=== PATIENT | female | born 1945 | race Caucasian/White ===

== ENCOUNTER 2016-09-03 07:42 | Emergency (ER) | payer OTHER ==
--- NOTE | 2016-09-03 07:58 | PDOC ---
History of Present Illness - General Chief Complaint: Palpitations Stated Complaint: PALITATIONS Time Seen by Provider: 09/03/16 07:58 History Source: Patient, EMS, Family Exam Limitations: No Limitations - History of Present Illness Initial Comments: 09/03/16 08:03 The patient is a 71-year-old female with a significant past medical history of hypertension, hyperlipidemia, type two diabetes, coronary artery disease, paroxysmal atrial fibrillation (Eliquis), hypothyroidism, asthma, who presents to the emergency department after she developed the acute onset of palpitations approximately one hour ago. They were rapid and fast. She took a nitroglycerin, and they resolved after a few minutes. She denies any accompanying chest pain, diaphoresis, dyspnea, nausea. She states that she had "stressful night, as she was at the hospital with her daughter, who has psychiatric illness. She did not take her medications this morning. The patient denies recent travel/surgeries/immobility, lower extremity edema, calf pain or tenderness, tobacco use, hormone use, personal or family history of thrombosis. Past History - Past Medical History Allergies/Adverse Reactions: Allergies Allergy/AdvReac Type Severity Reaction Status Date / Time No Known Allergies Allergy Verified 09/03/16 07:57 Home Medications: Ambulatory Orders Apixaban [Eliquis] 5 mg PO DAILY 09/03/16 Isosorbide Mononitrate [Isosorbide Mononitrate ER] 30 mg PO DAILY 09/03/16 Levothyroxine [Synthroid -] 50 mcg PO DAILY 09/03/16 Losartan Potassium 50 mg PO DAILY 09/03/16 Metoprolol Succinate [Toprol Xl -] 50 mg PO BID 09/03/16 Montelukast Na [Singulair -] 10 mg PO HS 09/03/16 Nitroglycerin [Nitrostat] 0.4 mg SL PRN PRN 09/03/16 Rosuvastatin Calcium 10 mg PO DAILY 09/03/16 Anemia: No Asthma: Yes Cancer: No Cardiac Disorders: No (WAS HOSPITALIZED FOR CHEST PAIN-NO [place]-SAW CARDIOLOGY- MEDICATION ADJUSTED.) CVA: No COPD: No CHF: No Dementia: No Diabetes: Yes GI Disorders: Yes Disorders: No HTN: Yes Hypercholesterolemia: Yes Liver Disease: No Suicide Attempt (Hx): No Seizures: No Thyroid Disease: Yes - Surgical History Abdominal Surgery: Yes (ABDOMINOPLASTY @ 59) Appendectomy: No Cardiac Surgery: No Cholecystectomy: Yes Lung Surgery: No Neurologic Surgery: No Orthopedic Surgery: No - Psycho/Social/Smoking Cessation Hx Anxiety: No Suicidal Ideation: No Smoking History: Former smoker Have you smoked in the past 12 months: No If you are a former smoker, when did you quit?: STOPPED @ 37 YRS OF AGE Hx Alcohol Use: Yes (occasional) Drug/Substance Use Hx: No Substance Use Type: Alcohol Hx Substance Use Treatment: No Review of Systems - Review of Systems Comments:: 09/03/16 08:04 CONSTITUTIONAL: Absent: fever, chills, diaphoresis, generalized weakness, malaise, loss of appetite HEENT: Absent: rhinorrhea, nasal congestion, throat pain, throat swelling, difficulty swallowing, mouth swelling, ear pain, eye pain, visual Changes CARDIOVASCULAR: Present: palpitations Absent: chest pain, loss of consciousness, peripheral edema RESPIRATORY: Absent: cough, shortness of breath, dyspnea with exertion, orthopnea, wheezing, stridor, hemoptysis GASTROINTESTINAL: Absent: abdominal pain, abdominal distension, nausea, vomiting, diarrhea, constipation, melena, hematochezia GENITOURINARY: Absent: dysuria, frequency, urgency, hesitancy, hematuria, flank pain, genital pain MUSCULOSKELETAL: Absent: myalgia, arthralgia, joint swelling SKIN: Absent: rash, itching, pallor HEMATOLOGIC/IMMUNOLOGIC: Absent: easy bleeding, easy bruising, lymphadenopathy, frequent infections ENDOCRINE: Absent: unexplained weight gain, unexplained weight loss, heat intolerance, cold intolerance NEUROLOGIC: Absent: headache, focal weakness or paresthesias, dizziness, unsteady gait, seizure, mental status changes, bladder or bowel incontinence PSYCHIATRIC: Absent: anxiety, depression, suicidal or homicidal ideation, hallucinations. *Physical Exam - Physical Exam Comments: 09/03/16 08:04 GENERAL: Well developed, well nourished. Awake and alert. No acute distress. HEENT: Normocephalic, atraumatic. PERRLA, EOMI. No conjunctival pallor. Sclera are non- icteric. Moist mucous membranes. Oropharynx is clear. NECK: Supple. Full ROM. No JVD. Carotid pulses 2+ and symmetric, without bruits. No thyromegaly. No lymphadenopathy. CARDIOVASCULAR: Regular rate and rhythm. No murmurs, rubs, or gallops. Distal pulses are 2+ and symmetric. PULMONARY: No evidence of respiratory distress. Lungs clear to auscultation bilaterally. No wheezing, rales or rhonchi. ABDOMINAL: Soft. Non-tender. Non-distended. No rebound or guarding. No organomegaly. Normoactive bowel sounds. MUSCULOSKELETAL Normal range of motion at all joints. No bony deformities or tenderness. No CVA tenderness. EXTREMITIES: No cyanosis. No clubbing. No edema. No calf tenderness. SKIN: Warm and dry. Normal capillary refill. No rashes. No jaundice. NEUROLOGICAL: Alert, awake, appropriate. Cranial nerves 2-12 intact. No deficits to light touch and temperature in face, upper extremities and lower extremities. No motor deficits in the in face, upper extremities and lower extremities. Normoreflexic in the upper and lower extremities. Normal speech. Toes are down- going bilaterally. Gait is normal without ataxia. PSYCHIATRIC: Cooperative. Good eye contact. Appropriate mood and affect. Heart Score/ECG Review - ECG Impressions Comment:: 09/03/16 08:14 Normal sinus rhythm with a ventricular rate of 72, normal axis, normal intervals , early R-wave progression, no ST changes ED Treatment Course - LABORATORY CBC & Chemistry Diagram: 09/03/16 08:35 09/03/16 08:35 Medical Decision Making - Medical Decision Making 09/03/16 08:06 The patient is well appearing and in no acute distress Will obtain EKG, labs, CXR 09/03/16 08:13 EKG noted, sinus rhythm with no ischemic changes 09/03/16 08:21 She remains in normal sinus rhythm, asymptomatic CXR emergency department interpretation: no acute cardiopulmonary disease 09/03/16 10:12 She has remained asymptomatic, and normal sinus rhythm, for the duration of her stay Troponin noted, negative Clinical impression: Palpitations I discussed the physical exam findings, ancillary test results and final diagnoses with the patient. I answered all of the patient's questions. The patient was satisfied with the care received and felt comfortable with the discharge plan and treatment plan. The patient will call their primary care physician within 24 hours to arrange follow-up and will return to the Emergency Department with any new, persistent or worsening symptoms. *DC/Admit/Observation/Transfer Diagnosis at time of Disposition: Palpitations - Discharge Dispostion Disposition: HOME Condition at time of disposition: Stable - Patient Instructions Printed Discharge Instructions: DI for Palpitations, DI for Arrhythmias, DI for Atrial Fibrillation Additional Instructions: Return to the emergency department immediately with ANY new, persistent or worsening symptoms. You MUST call and follow up with your doctor tomorrow. Please make sure your doctor reviews the results of your emergency department evaluation.
[2016-09-03] MEDS ORDERED: ASPIRIN 81 MG CHEWABLE TABLETS PO ONE (07:59)
[2016-09-03] MEDS ORDERED: METOPROLOL TARTRATE 50 MG TABLET (FP) PO ONE (08:15)
[2016-09-03 08:45] VITALS: TEMP 98.3; BMI 32.1
[2016-09-03 08:49] LABS: BASOPHIL 0.5 % (0-2.0); EOSINOPHIL 1.8 % (0-4.5); MCH 30.2 pg (25.7-33.7); MCHC 33.2 g/dl (32.0-36.0); MEAN PLT VOLUME 7.4 fl (7.5-11.1); NEUTROPHILS 66.4 % (42.8-82.8); PLATELET COUNT 286 K/MM3 (134-434); RDW 12.5 % (11.6-15.6); WHITE BLOOD COUNT 6.6 K/mm3 (4.0-10.8)
[2016-09-03] MEDS ORDERED: METOPROLOL TARTRATE 50 MG TABLET (FP) ONE (08:49)
[2016-09-03 09:09] LABS: CPK(DFH) 70 IU/L (26-140)
[2016-09-03 09:10] LABS: ALBUMIN 3.7 g/dl (3.5-5.0); ALK PHOS 74 U/L (32-92); ANION GAP 6 (8-16); BILIRUBIN,TOTAL 0.6 mg/dl (0.2-1.0); CALCIUM 8.8 mg/dl (8.4-10.2); CO2 25 mmol/L (22-28); CREATININE 0.7 mg/dl (0.6-1.3); GLUCOSE,RANDOM 112 mg/dl (74-106); MAGNESIUM 1.9 mg/dL (1.8-2.4); SGOT/AST 17 U/L (10-42); SGPT/ALT 14 U/L (10-40); TOT PROT 6.2 g/dl (6.4-8.3)
[2016-09-03 09:16] LABS: INR 1.12 (0.82-1.09); PROTHROMBIN TIME (PATIENT) 12.5 SEC (10.2-13.0)
[2016-09-03 10:05] LABS: TROPONIN I (DFP) < 0.03 ng/ml (0.03-0.50)
[2016-09-03 10:20] VITALS: BP 121/66; PULSE 56
[2016-09-03 11:28] LABS: THYROID STIMULATING HORMONE 3.27 uIU/ml (0.358-3.74)
--- NOTE | 2016-09-06 09:59 | EKG ---
Test Reason : Blood Pressure : / mmHG Vent. Rate : 072 BPM Atrial Rate : 072 BPM P-R Int : 196 ms QRS Dur : 080 ms QT Int : 402 ms P-R-T Axes : 024 -11 044 degrees QTc Int : 440 ms NORMAL SINUS RHYTHM CANNOT RULE OUT INFERIOR INFARCT , AGE UNDETERMINED NO PREVIOUS ECGS AVAILABLE Confirmed by MD BRYANT, SHELLIE ([id number]) on 09/06/2016 9:58:55 AM Referred By: FABIOLA WELCH Confirmed By:SHELLIE HURTADO MD
== END 2016-09-03 10:25 | disposition home or self-care (01) ==
LOC: FER 07:42
DX: R00.2 Palpitations (principal); J45.909 Unspecified asthma, uncomplicated; E11.9 Type 2 diabetes mellitus without complications; I10 Essential (primary) hypertension; E78.00 Pure hypercholesterolemia, unspecified; E07.9 Disorder of thyroid, unspecified; Z87.891 Personal history of nicotine dependence; Z79.01 Long term (current) use of anticoagulants
CPT/HCPCS: 36415; 71020-TC; 80053; 82550; 83735; 84443; 84484; 85025; 85610; 93005; 99285-25

== ENCOUNTER 2016-10-16 07:30 | Emergency (ER) | payer OTHER ==
[2016-10-16] MEDS ORDERED: ALBUTEROL SO4 2.5/IPRATROPIUM 0.5 INH SOL 3 ML VIAL.NEB. NEB ONE ×2 (07:34→07:41)
[2016-10-16 07:39] VITALS: BP 128/78; PULSE 64; TEMP 98.1; BMI 32.1
--- NOTE | 2016-10-16 07:40 | PDOC ---
History of Present Illness - General Chief Complaint: Respiratory Stated Complaint: COUGH AND CONGESTION FOR 5 DAYS Time Seen by Provider: 10/16/16 07:34 History Source: Patient - History of Present Illness Initial Comments: 10/16/16 07:35 71 yo F with HTN afib, DM asthma, here with cough and sore throat for 6 days. saw pcp 4 days ago who tested her fro strept throat , had rapid test positive and was started on amoxicillin. no iprovement has been using inhaler periodically, no relief. feels congestion and burning with cough. no f/c no n/v no leg swelling cough nonproductive. sore throat improved. Timing/Duration: reports: week Possible Cause: Yes: no prior episodes Modifying Factors: improves with: albuterol inhaler Associated Symptoms: reports: cough, sore throat. denies: denies symptoms, chest pain/soreness, nasal drainage, shortness of breath, wheezing Past History - Past Medical History Allergies/Adverse Reactions: Allergies Allergy/AdvReac Type Severity Reaction Status Date / Time No Known Allergies Allergy Verified 10/16/16 07:31 Home Medications: Ambulatory Orders Apixaban [Eliquis] 5 mg PO BID 09/03/16 Isosorbide Mononitrate [Isosorbide Mononitrate ER] 30 mg PO DAILY 09/03/16 Levothyroxine [Synthroid -] 50 mcg PO DAILY 09/03/16 Losartan Potassium 50 mg PO DAILY 09/03/16 Metoprolol Succinate [Toprol Xl -] 75 mg PO BID 09/03/16 Montelukast Na [Singulair -] 10 mg PO HS 09/03/16 Nitroglycerin [Nitrostat] 0.4 mg SL PRN PRN 09/03/16 Rosuvastatin Calcium 10 mg PO DAILY 09/03/16 Albuterol 2.5/Ipratropium 0.5 [Duoneb -] 1 amp NEB Q4H PRN #1 box 10/16/16 Amoxicillin - [Amoxicillin 500mg Capsule -] 500 mg PO BID 10/16/16 Fluticasone Propionate 16 gm NS DAILY 10/16/16 Zolpidem Tartrate 10 mg PO PRN PRN 10/16/16 Anemia: No Asthma: Yes Cancer: No Cardiac Disorders: No (WAS HOSPITALIZED FOR CHEST PAIN-NO [place]-[facility]W CARDIOLOGY- MEDICATION ADJUSTED.) CVA: No COPD: No CHF: No Dementia: No Diabetes: Yes GI Disorders: Yes Disorders: No HTN: Yes Hypercholesterolemia: Yes Liver Disease: No Suicide Attempt (Hx): No Seizures: No Thyroid Disease: Yes - Surgical History Abdominal Surgery: Yes (ABDOMINOPLASTY @ 59) Appendectomy: No Cardiac Surgery: No Cholecystectomy: Yes Lung Surgery: No Neurologic Surgery: No Orthopedic Surgery: No - Psycho/Social/Smoking Cessation Hx Anxiety: No Suicidal Ideation: No Smoking History: Former smoker Have you smoked in the past 12 months: No If you are a former smoker, when did you quit?: STOPPED @ 37 YRS OF AGE Hx Alcohol Use: Yes (occasional) Drug/Substance Use Hx: No Substance Use Type: Alcohol Hx Substance Use Treatment: No Review of Systems - Review of Systems Constitutional: No: Chills, Diaphoresis HEENTM: No: Eye Pain Respiratory: Yes: Cough. No: Shortness of Breath, Wheezing Cardiac (ROS): No: Chest Pain ABD/GI: No: Nausea : No: Burning, Dysuria All Other Systems: Reviewed and Negative *Physical Exam - Physical Exam General Appearance: Yes: Nourished, Appropriately Dressed HEENT: positive: GONZÁLEZ, Normal ENT Inspection, Normal Voice, Pharynx Normal, Nasal Congestion. negative: Pharyngeal Erythema, Tonsillar Exudate, Tonsillar Erythema Neck: positive: Trachea midline Respiratory/Chest: positive: Lungs Clear, Normal Breath Sounds Cardiovascular: positive: Regular Rhythm, Regular Rate, S1, S2. negative: Edema , JVD Musculoskeletal: positive: Normal Inspection Extremity: positive: Normal Capillary Refill, Normal Inspection, Normal Range of Motion Integumentary: positive: Normal Color, Dry, Warm Neurologic: positive: Fully Oriented, Alert, Normal Mood/Affect ED Treatment Course - RADIOLOGY Radiology Studies Ordered: Category Date Time Status CHEST PA & LAT [RAD] Stat Radiology 10/16/16 07:34 Ordered Medical Decision Making - Medical Decision Making 10/16/16 07:39 71 yo F with h/o, asthma, htn afib, DM here wtih cough sore throat x 6 days. on exam normal. bronchial sounding cough. plan duoneb, xray r/o pneumonia. angelo supportive treatment for bronchitis will continue abx due to concern for questionable positive strept in pcp office . 10/16/16 08:14 pt feels much improved with single duoneb. no pna on xray. told to continue amox. d/w pt regarding dense breast tissue. has implants. will follow up with mammogram which she is due for in next 2 weeks. *DC/Admit/Observation/Transfer Diagnosis at time of Disposition: Bronchitis - Discharge Dispostion Disposition: HOME Condition at time of disposition: Stable Admit: No - Prescriptions Prescriptions: Albuterol 2.5/Ipratropium 0.5 [Duoneb -] 1 amp NEB Q4H PRN #1 box PRN Reason: Cough - Patient Instructions Printed Discharge Instructions: DI for Acute Bronchitis Additional Instructions: use nebulizer every 4 hours as needed for cough or wheezing. follow up with your primary doctor. continue the amoxicillin. return for any worsening symptoms or difficulty breathing. get lots of rest, and drink plenty liquids.
== END 2016-10-16 08:25 | disposition home or self-care (01) ==
LOC: FER 07:30
PROC: 3E0F7GC Introduction of Other Therapeutic Substance into Respiratory Tract, Via Natural or Artificial Opening (ICD-10-PCS; principal; 2016-10-16)
DX: J40 Bronchitis, not specified as acute or chronic (principal); Z87.891 Personal history of nicotine dependence; E11.9 Type 2 diabetes mellitus without complications; I10 Essential (primary) hypertension; E78.00 Pure hypercholesterolemia, unspecified
CPT/HCPCS: 71020-TC; 99281-25

== ENCOUNTER 2018-04-19 09:01 | Observation (INO) | payer OTHER ==
--- NOTE | 2018-04-19 09:10 | PDOC ---
History of Present Illness - General Chief Complaint: Chest Pain Stated Complaint: CHEST PRESSURE Time Seen by Provider: 04/19/18 09:07 History Source: Patient Exam Limitations: No Limitations - History of Present Illness Initial Comments: 04/19/18 09:26 Pt is a 73yo F with PMH of Afib on Eliquis, HTN, DM, HLD, Asthma presenting to ED with complaints of chest pain that started at 2am this morning. Pt says that around 2 am she was laying in bed when she had a sudden onset of left sided chest pressure which lasted for around 1 hour. She has felt a similar pressure 3 years ago when she was diagnosed with Afib. Pt said that during this time she had a pressure in her chest with a stretching sensation in her back and L arm. Associated with some palpitations. She denies shortness of breath, syncope, leg swelling, fevers, chills, cough, abdominal pain, n/v/d, neck pain, urinary symptoms, weakness, numbness/tingling, changes in vision. Pt said she took SL Nitro and afterward felt dizzy. After the episode pt drank milk and went to sleep. Currently she is not experiencing any symptoms other than the stretching sensation in her back and a slight headache. PMD: Brown Card: Sabrina PMH: see hpi PSH: cholecystectomy Meds: see med rec Allergies: nkda Past History - Past Medical History Allergies/Adverse Reactions: Allergies Allergy/AdvReac Type Severity Reaction Status Date / Time No Known Allergies Allergy Verified 04/19/18 09:03 Home Medications: Ambulatory Orders Apixaban [Eliquis] 5 mg PO BID 09/03/16 Isosorbide Mononitrate [Isosorbide Mononitrate ER] 30 mg PO DAILY 09/03/16 Levothyroxine [Synthroid -] 50 mcg PO DAILY 09/03/16 Losartan Potassium 50 mg PO DAILY 09/03/16 Metoprolol Succinate [Toprol Xl -] 100 mg PO BID 09/03/16 Montelukast Na [Singulair -] 10 mg PO HS 09/03/16 Nitroglycerin [Nitrostat] 0.4 mg SL PRN PRN 09/03/16 Rosuvastatin Calcium 10 mg PO DAILY 09/03/16 Albuterol 2.5/Ipratropium 0.5 [Duoneb -] 1 amp NEB Q4H PRN #1 box 10/16/16 Fluticasone Propionate 16 gm NS DAILY 10/16/16 Zolpidem Tartrate 5 mg PO PRN PRN 10/16/16 Fluticasone/Vilanterol [Breo Ellipta 100-25 Mcg INH] 1 each IH ASDIR 04/19/18 Metformin HCl [Glucophage] 500 mg PO DAILY 04/19/18 Anemia: No Asthma: Yes Cancer: No Cardiac Disorders: No (WAS HOSPITALIZED FOR CHEST PAIN-NO [place]-SAW CARDIOLOGY- MEDICATION ADJUSTED.) CVA: No COPD: No CHF: No Dementia: No Diabetes: Yes GI Disorders: Yes Disorders: No HTN: Yes Hypercholesterolemia: Yes Liver Disease: No Seizures: No Thyroid Disease: Yes - Surgical History Abdominal Surgery: Yes (ABDOMINOPLASTY @ 59) Appendectomy: No Cardiac Surgery: No Cholecystectomy: Yes Lung Surgery: No Neurologic Surgery: No Orthopedic Surgery: No - Suicide/Smoking/Psychosocial Hx Smoking History: Former smoker Have you smoked in the past 12 months: No If you are a former smoker, when did you quit?: STOPPED @ 37 YRS OF AGE Hx Alcohol Use: Yes (occasional) Drug/Substance Use Hx: No Substance Use Type: Alcohol Hx Substance Use Treatment: No Review of Systems - Review of Systems Constitutional: No: Chills, Fever, Night Sweats, Weakness HEENTM: No: Blurred Vision, Recent change in vision Respiratory: No: Cough, Shortness of Breath, Hemoptysis Cardiac (ROS): Yes: See HPI. No: Chest Pain, Lightheadedness, Palpitations, Syncope, Chest Tightness ABD/GI: No: Constipated, Diarrhea, Nausea, Vomiting : No: Burning, Dysuria Musculoskeletal: Yes: Back Pain (tightness) Integumentary: No: Symptoms Reported Neurological: No: Headache, Numbness, Tingling, Weakness *Physical Exam - Physical Exam General Appearance: Yes: Nourished, Appropriately Dressed. No: Apparent Distress HEENT: positive: EOMI, GONZÁLEZ, Normal ENT Inspection Neck: positive: Trachea midline, Supple. negative: Carotid bruit, Lymphadenopathy (R), Lymphadenopathy (L) Respiratory/Chest: positive: Lungs Clear, Normal Breath Sounds. negative: Crackles, Rhonchi, Stridor, Wheezing Cardiovascular: positive: Regular Rhythm, Regular Rate, S1, S2. negative: Edema , JVD, Murmur Vascular Pulses: Carotid (R): 2+, Carotid (L): 2+, Dorsalis-Pedis (R): 2+, Doralis-Pedis (L): 2+ Gastrointestinal/Abdominal: positive: Normal Bowel Sounds, Soft. negative: Guarding, Rebound, Tenderness Musculoskeletal: negative: CVA Tenderness Extremity: positive: Normal Capillary Refill Integumentary: positive: Normal Color, Dry, Warm Neurologic: positive: sports attorney II-XII NML intact, Fully Oriented, Alert, Normal Mood/ Affect, Normal Response, Motor Strength 5/5 Heart Score/ECG Review - History History: Moderately suspicious - Electrocardiogram EKG: Normal - Age Age: >/= 65 - Risk Factors Risk Factors Heart Score: Yes Hx Hypercholesterolemia, Yes Hx Hypertension, Yes Hx Diabetes Based on the list above the patient has:: >/=3 risk factors or Hx atherosclerotic disease - Troponin Troponin: </= normal limit - Score Heart Score - Total: 5 ED Treatment Course - LABORATORY CBC & Chemistry Diagram: 04/19/18 09:35 04/19/18 09:35 Medical Decision Making - Medical Decision Making 04/19/18 09:30 Pt is a 73yo F with PMH of Afib on Eliquis, HTN, DM, HLD, Asthma presenting to ED with complaints of chest pain that started at 2am this morning. Pt says that around 2 am she was laying in bed when she had a sudden onset of left sided chest pressure which lasted for around 1 hour. She has felt a similar pressure 3 years ago when she was diagnosed with Afib. Pt said that during this time she had a pressure in her chest with a stretching sensation in her back and L arm. Associated with some palpitations. She denies shortness of breath, syncope, leg swelling, fevers, chills, cough, abdominal pain, n/v/d, neck pain, urinary symptoms, weakness, numbness/tingling, changes in vision. Pt said she took SL Nitro and afterward felt dizzy. After the episode pt drank milk and went to sleep. Currently she is not experiencing any symptoms other than the stretching sensation in her back and a slight headache. Vitals: wnl PE: benign DDx includes but not limited to: PE, NC, carditis, pneumonitis, ptx, dissection , aneurysm, -low suspicion for PE given pt is taking blood thinners and has no other symptoms suggesting PE. labs, ekg, cxr, ASA 162 given. EKG: NSR no jayde or depressions or t wave inversions CXR: no acute pathology If trop negative, HEART is 5, pt would need observation. Labs: wnl. Trop 0.03. Pt agreed to admission obs/tele. *DC/Admit/Observation/Transfer Diagnosis at time of Disposition: Chest tightness or pressure - Discharge Dispostion Condition at time of disposition: Good Decision to Admit order: Yes - Referrals - Patient Instructions - Post Discharge Activity
--- NOTE | 2018-04-19 09:28 | PDOC ---
Attending Attestation - Resident Resident Name: Marce Flynn - HPI HPI: 04/19/18 10:40 Pt presents to the ED complaining of the acute onset of chest pain that began at rest and was relieved with nitrogylcerin. Now is chest pain free. History of DM and HTN. - Physicial Exam PE: 04/19/18 10:53 Agree with resident exam. Patient is alert and oriented and in no acute distress. Heart has regular rate and rhythm. Lungs are clear. - Medical Decision Making 04/19/18 10:54 Pt presents to the ED complaining of chest pressure that has now resolved. EKG and troponin are normal, but HEART score is 4. Will admit for observation for r /o ACS.
[2018-04-19] MEDS ORDERED: ASPIRIN 81 MG CHEWABLE TABLETS PO ONE (09:39)
[2018-04-19] MEDS ORDERED: ASPIRIN 81 MG CHEWABLE TABLETS ONE (09:44)
[2018-04-19 10:01] LABS: BASO % 0.7 % (0-2.0); EOS % 2.6 % (0-4.5); HEMATOCRIT 40.6 % (32.4-45.2); HEMOGLOBIN 13.5 GM/dl (10.7-15.3); LYMPH % 26.9 % (8-40); MCH 30.7 pg (25.7-33.7); MCHC 33.2 g/dl (32.0-36.0); MEAN CELL VOLUME 92.4 fl (80-96); MEAN PLT VOLUME 7.9 fl (7.5-11.1); MONO % 6.1 % (3.8-10.2); NEUT % 63.7 % (42.8-82.8); PLATELET COUNT 294 K/MM3 (134-434); RBC 4.39 M/mm3 (3.60-5.2); RDW 13.4 % (11.6-15.6); WHITE BLOOD COUNT 5.1 K/mm3 (4.0-10.8)
[2018-04-19 10:05] LABS: INR 1.25 (0.82-1.09); PROTHROMBIN TIME (PATIENT) 13.9 SEC (10.2-13.0)
[2018-04-19 10:23] LABS: ALBUMIN 3.6 g/dl (3.5-5.0); ALK PHOS 66 U/L (32-92); ANION GAP 7 MMOL/L (8-16); BILIRUBIN,TOTAL 0.6 mg/dl (0.2-1.0); BLOOD UREA NITROGEN 14 mg/dl (7-18); CALCIUM 8.9 mg/dl (8.4-10.2); CHLORIDE 105 mmol/L (98-107); CO2 26 mmol/L (22-28); CREATININE 0.7 mg/dl (0.6-1.3); GLUCOSE,RANDOM 128 mg/dl (74-106); POTASSIUM 3.7 mmol/L (3.5-5.1); SGOT/AST 21 U/L (10-42); SGPT/ALT 19 U/L (10-40); SODIUM 138 mmol/L (136-145); TOT PROT 6.5 g/dl (6.4-8.3)
[2018-04-19] MEDS ORDERED: ACETAMINOPHEN 325 MG TABLET (FP) PO PRN (11:31)
[2018-04-19] MEDS ORDERED: NITROGLYCERIN SUBLINGUAL 1/150 0.4 MG TAB SL PRN (11:36)
[2018-04-19] MEDS ORDERED: ZOLPIDEM TARTRATE 5 MG TABLET PO PRN (11:36)
[2018-04-19] MEDS ORDERED: ALBUTEROL SO4 2.5/IPRATROPIUM 0.5 INH SOL 3 ML VIAL.NEB. NEB PRN (11:36)
--- NOTE | 2018-04-19 12:10 | HP ---
CHIEF COMPLAINT: Chest pain PCP: Dr. Randa Mccoy ([place]) [employer]: Dr. Bennett HISTORY OF PRESENT ILLNESS: This is a 73-year-old female with a history of Afib (on Eliquis, metoprolol), HTN, NIDDM, and asthma who presented to the ED today after an episode of chest pain. She was in her usual state of health yesterday, but had difficulty falling asleep. While in bed, she developed sudden onset of chest pressure radiating to the back at around 1 or 2am. She did not have any associated shortness of breath, diaphoresis, n/v, or any other symptoms. She took 1 tab of nitroglycerin which had been prescribed to her, although this was the first time she had ever used it. After taking the medication, she developed headache and lightheadedness/near syncope. These symptoms abated and the chest pain resolved. She slept until 8am and then presented for evaluation. ER course was notable for: (1) EKG: NSR at 62bpm, no ischemic changes (2) CXR: No acute process (3) Troponin 0.03 Recent Travel: None PAST MEDICAL HISTORY: As above PAST SURGICAL HISTORY: Bladder mesh, gallbladder, lipoma removed from mid-back, abdominoplasty, left breast surgery Social History: Lives with , has 4 children. 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 Smoking: Distant history (quit 40 yrs ago) Alcohol: None Drugs: None Allergies No Known Allergies Allergy (Verified 04/19/18 09:03) HOME MEDICATIONS: Home Medications Medication Instructions Recorded Apixaban [Eliquis] 5 mg PO BID 09/03/16 Isosorbide Mononitrate [Isosorbide 30 mg PO DAILY 09/03/16 Mononitrate ER] Levothyroxine [Synthroid -] 50 mcg PO DAILY 09/03/16 Losartan Potassium 50 mg PO DAILY 09/03/16 Metoprolol Succinate [Toprol Xl -] 100 mg PO BID 09/03/16 Montelukast Na [Singulair -] 10 mg PO HS 09/03/16 Nitroglycerin [Nitrostat] 0.4 mg SL PRN PRN 09/03/16 Rosuvastatin Calcium 10 mg PO DAILY 09/03/16 Albuterol 2.5/Ipratropium 0.5 1 amp NEB Q4H PRN #1 box 10/16/16 [Duoneb -] Fluticasone Propionate 16 gm NS DAILY 10/16/16 Zolpidem Tartrate 5 mg PO PRN PRN 10/16/16 Fluticasone/Vilanterol [Breo 1 each IH ASDIR 04/19/18 Ellipta 100-25 Mcg INH] Metformin HCl [Glucophage] 500 mg PO DAILY 04/19/18 REVIEW OF SYSTEMS CONSTITUTIONAL: Absent: fever, chills, diaphoresis, generalized weakness, malaise, loss of appetite, weight change HEENT: Absent: rhinorrhea, nasal congestion, throat pain, throat swelling, difficulty swallowing, mouth swelling, ear pain, eye pain, visual changes CARDIOVASCULAR: See HPI Absent: syncope, palpitations, irregular heart rate, peripheral edema RESPIRATORY: Absent: cough, shortness of breath, dyspnea with exertion, orthopnea, wheezing, stridor, hemoptysis GASTROINTESTINAL: Absent: abdominal pain, abdominal distension, nausea, vomiting, diarrhea, constipation, melena, hematochezia GENITOURINARY: Absent: dysuria, frequency, urgency, hesitancy, hematuria, flank pain, genital pain MUSCULOSKELETAL: Absent: myalgia, arthralgia, joint swelling, back pain, neck pain SKIN: Absent: rash, itching, pallor HEMATOLOGIC/IMMUNOLOGIC: Absent: easy bleeding, easy bruising, lymphadenopathy, frequent infections ENDOCRINE: Absent: unexplained weight gain, unexplained weight loss, heat intolerance, cold intolerance NEUROLOGIC: Absent: headache, focal weakness or paresthesias, dizziness, unsteady gait, seizure, mental status changes, bladder or bowel incontinence PSYCHIATRIC: Absent: anxiety, depression, suicidal or homicidal ideation, hallucinations. PHYSICAL EXAMINATION Vital Signs - 24 hr 04/19/18 09:01 Temperature 99 F Pulse Rate 68 Respiratory 18 Rate Blood Pressure 144/70 O2 Sat by Pulse 97 Oximetry (%) GENERAL: Awake, alert, and fully oriented, in no acute distress. HEAD: Normal with no signs of trauma. EYES: Pupils equal, round and reactive to light, extraocular movements intact, sclera anicteric, conjunctiva clear. No lid lag. EARS, NOSE, THROAT: Ears normal, nares patent, oropharynx clear without exudates. Moist mucous membranes. NECK: Normal range of motion, supple without lymphadenopathy, JVD, or masses. LUNGS: Breath sounds equal, clear to auscultation bilaterally. No wheezes, and no crackles. No accessory muscle use. HEART: Regular rate and rhythm, normal S1 and S2 without murmur, rub or gallop. ABDOMEN: Soft, nontender, not distended, normoactive bowel sounds, no guarding, no rebound, no masses. No hepatomegaly or splenomegaly. MUSCULOSKELETAL: Normal range of motion at all joints. No bony deformities or tenderness. No CVA tenderness. UPPER EXTREMITIES: 2+ pulses, warm, well-perfused. No cyanosis. No clubbing. No peripheral edema. LOWER EXTREMITIES: 2+ pulses, warm, well-perfused. No calf tenderness. No peripheral edema. NEUROLOGICAL: Cranial nerves II-XII intact. Normal speech. Normal gait. PSYCHIATRIC: Cooperative. Good eye contact. Appropriate mood and affect. SKIN: Warm, dry, normal turgor, no rashes or lesions noted, normal capillary refill. Laboratory Results - last 24 hr 04/19/18 04/19/18 04/19/18 09:35 09:35 09:35 WBC 5.1 RBC 4.39 Hgb 13.5 Hct 40.6 MCV 92.4 MCH 30.7 MCHC 33.2 RDW 13.4 Plt Count 294 MPV 7.9 Absolute Neuts (auto) 3.3 Neutrophils % 63.7 Lymphocytes % 26.9 Monocytes % 6.1 Eosinophils % 2.6 Basophils % 0.7 PT with INR 13.9 H INR 1.25 H Sodium 138 Potassium 3.7 Chloride 105 Carbon Dioxide 26 Anion Gap 7 L BUN 14 Creatinine 0.7 Creat Clearance w eGFR > 60 Random Glucose 128 H Calcium 8.9 Magnesium 2.0 Total Bilirubin 0.6 AST 21 D ALT 19 D Alkaline Phosphatase 66 Troponin I Total Protein 6.5 Albumin 3.6 04/19/18 09:35 WBC RBC Hgb Hct MCV MCH MCHC RDW Plt Count MPV Absolute Neuts (auto) Neutrophils % Lymphocytes % Monocytes % Eosinophils % Basophils % PT with INR INR Sodium Potassium Chloride Carbon Dioxide Anion Gap BUN Creatinine Creat Clearance w eGFR Random Glucose Calcium Magnesium Total Bilirubin AST ALT Alkaline Phosphatase Troponin I < 0.03 Total Protein Albumin ASSESSMENT/PLAN: 73-year-old female s/p episode of chest pain. Place in observation to rule out NC. Problem List - Problem (1) Chest pain Assessment/Plan: -Started at rest, then resolved with ntg -Monitor on telemetry -Serial troponins to rule out NC -Check lipids, A1C -Echocardiogram -Cardiology evaluation Code(s): R07.9 - CHEST PAIN, UNSPECIFIED (2) Atrial fibrillation Assessment/Plan: -In NSR -Continue metoprolol, Eliquis Code(s): I48.91 - UNSPECIFIED ATRIAL FIBRILLATION (3) Hypertension Assessment/Plan: -At goal -Continue metoprolol, losartan Code(s): I10 - ESSENTIAL (PRIMARY) HYPERTENSION (4) Hypercholesterolemia Assessment/Plan: -Continue rosuvastatin Code(s): E78.00 - PURE HYPERCHOLESTEROLEMIA, UNSPECIFIED (5) Hypothyroidism Assessment/Plan: -Check TSH -Continue levothyroxine Code(s): E03.9 - HYPOTHYROIDISM, UNSPECIFIED (6) DVT prophylaxis Assessment/Plan: -On Eliquis Code(s): IXC7747 - Visit type - Emergency Visit Emergency Visit: Yes ED Registration Date: 04/19/18 Care time: The patient presented to the Emergency Department on the above date and was hospitalized for further evaluation of their emergent condition. - New Patient This patient is new to me today: Yes Date on this admission: 04/19/18 - Critical Care Critical Care patient: No
[2018-04-19 12:54] VITALS: TEMP 98.1
--- NOTE | 2018-04-19 13:41 | EKG ---
Test Reason : Blood Pressure : / mmHG Vent. Rate : 062 BPM Atrial Rate : 062 BPM P-R Int : 180 ms QRS Dur : 074 ms QT Int : 436 ms P-R-T Axes : 028 -04 046 degrees QTc Int : 442 ms NORMAL SINUS RHYTHM NORMAL ECG WHEN COMPARED WITH ECG OF 03-SEP-2016 07:51, NO SIGNIFICANT CHANGE WAS FOUND Confirmed by ZAC POTTS MD ([id number]) on 04/19/2018 1:40:37 PM Referred By: MARYCARMEN CULLEN Confirmed By:ZAC POTTS MD
--- NOTE | 2018-04-19 13:42 | CON.CARD ---
Consult Consult Specialty:: Cardiology Referred by:: Olivia Reason for Consultation:: chest pain - History of Present Illness Chief Complaint: chest pain History of Present Illness: 73F h/o afib, HTN, DM, asthma, CAD p/w chest pain. Yesterday had difficulty falling asleep, felt normal before that, had sudden chest pain radiating to back at 1-2 AM. No dyspnea, diaphoresis, palps, dizziness, lightheadedness. Took one NTG and had lightheadedness/headache which went away and chest pain resolved. slept till 8 AM and then went to ER. Sees Dr. Bennett for cardio. Last seen 02/2018, notes chronic nonexertional chest pain. She goes to the gym a few days a week, most recently this week Monday and Monday including running, walking on treadmill and stationary bike without symptoms. - Past Medical History Cardio/Vascular: Yes: HTN, Hyperlipdemia Pulmonary: Yes: Asthma Endocrine: Yes: Diabetes Mellitus - Alcohol/Substance Use Hx Alcohol Use: Yes (occasional) - Smoking History Smoking history: Former smoker Have you smoked in the past 12 months: No If you are a former smoker, when did you quit?: STOPPED @ 37 YRS OF AGE - Social History Usual Living Arrangement: With Spouse Home Medications - Allergies Allergies/Adverse Reactions: Allergies Allergy/AdvReac Type Severity Reaction Status Date / Time No Known Allergies Allergy Verified 04/19/18 09:03 - Home Medications Home Medications: Ambulatory Orders Apixaban [Eliquis] 5 mg PO BID 09/03/16 Isosorbide Mononitrate [Isosorbide Mononitrate ER] 30 mg PO DAILY 09/03/16 Levothyroxine [Synthroid -] 50 mcg PO DAILY 09/03/16 Losartan Potassium 50 mg PO DAILY 09/03/16 Metoprolol Succinate [Toprol Xl -] 100 mg PO BID 09/03/16 Montelukast Na [Singulair -] 10 mg PO HS 09/03/16 Nitroglycerin [Nitrostat] 0.4 mg SL PRN PRN 09/03/16 Rosuvastatin Calcium 10 mg PO DAILY 09/03/16 Albuterol 2.5/Ipratropium 0.5 [Duoneb -] 1 amp NEB Q4H PRN #1 box 10/16/16 Fluticasone Propionate 16 gm NS DAILY 10/16/16 Zolpidem Tartrate 5 mg PO PRN PRN 10/16/16 Fluticasone/Vilanterol [Breo Ellipta 100-25 Mcg INH] 1 each IH ASDIR 04/19/18 Metformin HCl [Glucophage] 500 mg PO DAILY 04/19/18 Family Disease History - Family Disease History Family History: Unremarkable Review of Systems - Review of Systems Constitutional: reports: No Symptoms Eyes: reports: No Symptoms HENT: reports: No Symptoms Neck: reports: No Symptoms Cardiovascular: reports: Chest Pain Respiratory: reports: No Symptoms Gastrointestinal: reports: No Symptoms Genitourinary: reports: No Symptoms Musculoskeletal: reports: No Symptoms Integumentary: reports: No Symptoms Neurological: reports: No Symptoms Endocrine: reports: No Symptoms Hematology/Lymphatic: reports: No Symptoms Psychiatric: reports: No Symptoms Vital Signs: Vital Signs Temperature 98.1 F 04/19/18 12:40 Pulse Rate 71 04/19/18 12:40 Respiratory Rate 18 04/19/18 12:40 Blood Pressure 117/68 04/19/18 12:40 O2 Sat by Pulse Oximetry (%) 99 04/19/18 12:40 Constitutional: Yes: No Distress, Calm Eyes: Yes: Conjunctiva Clear, EOM Intact HENT: Yes: Atraumatic, Normocephalic Neck: Yes: Supple, Trachea Midline Respiratory: Yes: Regular, CTA Bilaterally Gastrointestinal: Yes: Normal Bowel Sounds, Soft Cardiovascular: Yes: Regular Rate and Rhythm JVD: No Carotid Bruit: No Heart Sounds: Yes: S1, S2 Musculoskeletal: No: Back Pain Extremities: No: Cold Edema: No Peripheral Pulses WNL: Yes Peripheral Pulses: 2+ Left Carotid, 2+ Right Carotid, 2+ Left Doralis Pedis, 2+ Right Dorsalis Pedis Neurological: Yes: Alert, Oriented Psychiatric: Yes: Alert, Oriented. No: Agitated - Other Data Labs, Other Data: CBC, BMP 04/19/18 09:35 04/19/18 09:35 INR, PTT INR 1.25 (0.82-1.09) H 04/19/18 09:35 Troponin, BNP 04/19/18 09:35 Troponin I < 0.03 Troponin, BNP 04/19/18 09:35 Troponin I < 0.03 Assessment/Plan Stress Echo 01/2016: 5:08min, no CP; Non-ischemic stress test by EKG. Very technically limited images (breast implants)--with no echocardiographic evidence of inducible ischemia in visualized territories. Appropriate incr in LVEF. MIBI 12/27: 7:00 min, no STs, small inferolat isch; nl EF Echo 01/2016: 1. The left ventricular size is normal. 2. Overall left ventricular systolic function is normal with, an EF between 65 - 70 %. 3. The right ventricle is normal in size and function. 4. Left atrium is normal size by volume. 5. No valvular dysfunction seen. Echo 12/27: TDS; nl LV/EF; RV tds; nl valve fxn Carotids 04/28: no plq, WNL. echo 04/2018 tds, nl LV/RV EKG: sinus, no ischemic changes CXR: no acute process tele: sinus, 60s Chest/back pain - trop neg x 1 - EKG unremarkable - echo nl LV function - atypical symptoms, no exertional component. if second trop negative, stable for discharge from cardiac perspective, follow up with Dr. Bennett in 1-2 weeks CAD - h/o anginal symptoms 12/2014 triggered by emotional stress, presumed CAD based on abnormal nuclear stress test at the time - normal stress echo 2015 - continue statin, arb, eliquis paroxysmal afib - on metoprolol succinate with PRN lopressor if palps, continue - patient not sure of dose, on metoprolol tartrate 100 mg BID here, tolerating dose - per records was on metoprolol succinate at home, would discharge on metoprolol succinate - cont eliquis HTN - controlled, cont home meds HLD - continue statin DM - manage per primary
--- NOTE | 2018-04-19 13:51 | ECHO ---
Name: CALLIE ALVA Exam:Adult Echocardiogram Study Date: 04/19/2018 12:09 PM Age: 73 yrs Reason For Study: Chest pain MMode/2D Measurements & Calculations IVSd: 0.83 cm Ao root diam: 2.7 cm LVIDd: 4.6 cm LA dimension: 3.0 cm LVIDs: 2.9 cm LVPWd: 0.74 cm EDV(Teich): 95.9 ml ESV(Teich): 31.9 ml Doppler Measurements & Calculations MV E max kelley: 73.2 cm/sec MV dec slope: 308.5 cm/sec2 MV A max kelley: 64.8 cm/sec MV E/A: 1.1 MR max kelley: 329.9 cm/sec MR max P.1 mmHg Procedure A complete two-dimensional transthoracic echocardiogram was performed (2D, M-mode, Doppler and color flow Doppler). The study was technically difficult with many images being suboptimal in quality. Left Ventricle The left ventricular size, thickness and function are normal. The left ventricular ejection fraction is normal. Ejection Fraction = 60-65%. No regional wall motion abnormalities noted. Right Ventricle The right ventricle is normal in size and function. Atria Normal left and right atrial size and function. Mitral Valve There is no mitral regurgitation noted. Tricuspid Valve There is trace tricuspid regurgitation. There was insufficient TR detected to calculate RV systolic p ressure. Aortic Valve No hemodynamically significant valvular aortic stenosis. No aortic regurgitation is present. Pulmonic Valve The pulmonic valve is not well visualized. Great Vessels The aortic root is normal size. Pericardium/Pleura There is no pericardial effusion. Interpretation Summary The study was technically difficult with many images being suboptimal in quality. The left ventricular size, thickness and function are normal The right ventricle is normal in size and function. There is trace tricuspid regurgitation. MD Yves Mccoy 04/19/2018 01:51 PM
[2018-04-19] MEDS ORDERED: DOCUSATE SODIUM 100 MG CAPSULE (FP) PO SCH (14:00)
[2018-04-19 14:38] VITALS: BP 143/67; PULSE 61; BMI 30.4
--- NOTE | 2018-04-19 15:53 | DS ---
Physical Exam: SUBJECTIVE: Patient seen and examined OBJECTIVE: Vital Signs Period Temp Pulse Resp BP Sys/Pedraza Pulse Ox Last 24 Hr 98.1 F-99 F 59-71 16-18 117-144/67-74 97-99 PHYSICAL EXAM GENERAL: The patient is awake, alert, and fully oriented, in no acute distress. HEAD: Normal with no signs of trauma. EYES: PERRL, extraocular movements intact, sclera anicteric, conjunctiva clear. ENT: Ears normal, nares patent, oropharynx clear without exudates, moist mucous membranes. NECK: Trachea midline, full range of motion, supple. LUNGS: Breath sounds equal, clear to auscultation bilaterally, no wheezes, no crackles, no accessory muscle use. HEART: Regular rate and rhythm, S1, S2 without murmur, rub or gallop. ABDOMEN: Soft, nontender, nondistended, normoactive bowel sounds, no guarding, no rebound, no hepatosplenomegaly, no masses. EXTREMITIES: 2+ pulses, warm, well-perfused, no edema. NEUROLOGICAL: Cranial nerves II through XII grossly intact. Normal speech, gait not observed. PSYCH: Normal mood, normal affect. SKIN: Warm, dry, normal turgor, no rashes or lesions noted. LABS Laboratory Results - last 24 hr 04/19/18 04/19/18 04/19/18 09:35 09:35 09:35 WBC 5.1 RBC 4.39 Hgb 13.5 Hct 40.6 MCV 92.4 MCH 30.7 MCHC 33.2 RDW 13.4 Plt Count 294 MPV 7.9 Absolute Neuts (auto) 3.3 Neutrophils % 63.7 Lymphocytes % 26.9 Monocytes % 6.1 Eosinophils % 2.6 Basophils % 0.7 PT with INR 13.9 H INR 1.25 H Sodium 138 Potassium 3.7 Chloride 105 Carbon Dioxide 26 Anion Gap 7 L BUN 14 Creatinine 0.7 Creat Clearance w eGFR > 60 Random Glucose 128 H Calcium 8.9 Magnesium 2.0 Total Bilirubin 0.6 AST 21 D ALT 19 D Alkaline Phosphatase 66 Troponin I Total Protein 6.5 Albumin 3.6 04/19/18 09:35 WBC RBC Hgb Hct MCV MCH MCHC RDW Plt Count MPV Absolute Neuts (auto) Neutrophils % Lymphocytes % Monocytes % Eosinophils % Basophils % PT with INR INR Sodium Potassium Chloride Carbon Dioxide Anion Gap BUN Creatinine Creat Clearance w eGFR Random Glucose Calcium Magnesium Total Bilirubin AST ALT Alkaline Phosphatase Troponin I < 0.03 Total Protein Albumin HOSPITAL COURSE: Date of Admission:04/19/18 Date of Discharge: 04/19/18 Minutes to complete discharge: 45 Discharge Summary Reason For Visit: CHEST PAIN Current Active Problems Chest tightness or pressure (Acute) DVT prophylaxis (Acute) Atrial fibrillation (Chronic) Hypercholesterolemia (Chronic) Hypertension (Chronic) Hypothyroidism (Chronic) Condition: Good - Instructions Diet, Activity, Other Instructions: -Your EKG and blood work today did not show any evidence of a heart attack -Please continue all of your prescribed medications -Follow up with Dr. 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 next week -Return for repeated episodes of chest pain, shortness of breath, dizziness, sweating, or any other concerning symptoms Referrals: Vini Bennett MD [Staff Physician] - 1 Week Lis Mccoy [Primary Care Provider] - 1 Week Disposition: HOME - Home Medications Comprehensive Discharge Medication List: Ambulatory Orders Apixaban [Eliquis] 5 mg PO BID 09/03/16 Isosorbide Mononitrate [Isosorbide Mononitrate ER] 30 mg PO DAILY 09/03/16 Levothyroxine [Synthroid -] 50 mcg PO DAILY 09/03/16 Losartan Potassium 50 mg PO DAILY 09/03/16 Metoprolol Succinate [Toprol Xl -] 100 mg PO BID 09/03/16 Montelukast Na [Singulair -] 10 mg PO HS 09/03/16 Nitroglycerin [Nitrostat] 0.4 mg SL PRN PRN 09/03/16 Rosuvastatin Calcium 10 mg PO DAILY 09/03/16 Albuterol 2.5/Ipratropium 0.5 [Duoneb -] 1 amp NEB Q4H PRN #1 box 10/16/16 Fluticasone Propionate 16 gm NS DAILY 10/16/16 Zolpidem Tartrate 5 mg PO PRN PRN 10/16/16 Fluticasone/Vilanterol [Breo Ellipta 100-25 Mcg INH] 1 each IH ASDIR 04/19/18 Metformin HCl [Glucophage] 500 mg PO DAILY 04/19/18 Problem List - Problems (1) Chest pain Code(s): R07.9 - CHEST PAIN, UNSPECIFIED (2) Atrial fibrillation Code(s): I48.91 - UNSPECIFIED ATRIAL FIBRILLATION (3) Hypertension Code(s): I10 - ESSENTIAL (PRIMARY) HYPERTENSION (4) Hypercholesterolemia Code(s): E78.00 - PURE HYPERCHOLESTEROLEMIA, UNSPECIFIED (5) Hypothyroidism Code(s): E03.9 - HYPOTHYROIDISM, UNSPECIFIED (6) DVT prophylaxis Code(s): CSQ7260 -
[2018-04-19] MEDS ORDERED: METOPROLOL TARTRATE 50 MG TABLET (FP) PO SCH (22:00)
[2018-04-19] MEDS ORDERED: APIXABAN 5 MG TABLET PO SCH (22:00)
[2018-04-19] MEDS ORDERED: MONTELUKAST NA 10 MG TABLET PO SCH (22:00)
[2018-04-20] MEDS ORDERED: LEVOTHYROXINE NA 50 MCG TABLET (FP) PO SCH (07:00)
[2018-04-20] MEDS ORDERED: metFORMIN HCL 500 MG TABLET (FP) PO SCH (07:00)
[2018-04-20] MEDS ORDERED: LOSARTAN POTASSIUM 50 MG TABLET (FP) PO SCH (10:00)
[2018-04-20] MEDS ORDERED: ROSUVASTATIN CA 10 MG TABLET (FP) PO SCH (10:00)
[2018-04-20] MEDS ORDERED: ISOSORBIDE MONONITRATE 30 MG TAB.SR.24H (FP) PO SCH (10:00)
== END 2018-04-19 17:46 | disposition home or self-care (01) ==
LOC: FER 09:01 → FM/S 11:32
PROVIDERS: ADMIT Hospitalist; ATTEND Registered Nurse Emergency
DX: R07.9 Chest pain, unspecified (principal); I48.91 Unspecified atrial fibrillation; Z79.01 Long term (current) use of anticoagulants; I10 Essential (primary) hypertension; E78.00 Pure hypercholesterolemia, unspecified; E03.9 Hypothyroidism, unspecified; E11.9 Type 2 diabetes mellitus without complications; Z79.84 Long term (current) use of oral hypoglycemic drugs; J45.909 Unspecified asthma, uncomplicated; Z87.891 Personal history of nicotine dependence
CPT/HCPCS: 36415; 71045-TC-FY; 80053; 82550; 83735; 84484; 85025; 85610; 93005; 93306-TC; 99285-25; G0378